=== PATIENT | female | born 1970 | race Caucasian/White ===

== ENCOUNTER 2021-11-16 07:50 | Outpatient (CLI) | payer BC | END 2021-11-16 07:51 | disposition home or self-care (01) | LOC: CSHMAMMO 07:50 | PROVIDERS: ATTEND Student in an Organized Health Care Education/Training Program | DX: Z12.31 Encounter for screening mammogram for malignant neoplasm of breast (principal) | CPT/HCPCS: 77063; 77067 ==

== ENCOUNTER 2022-12-30 15:31 | Outpatient (CLI) | payer BC | END 2022-12-30 15:32 | disposition home or self-care (01) | LOC: CSHMAMMO 15:31 | PROVIDERS: ATTEND Obstetrics & Gynecology | DX: Z12.31 Encounter for screening mammogram for malignant neoplasm of breast (principal) | CPT/HCPCS: 77063; 77067 ==